=== PATIENT | male | born 2000 | race Caucasian/White ===

== ENCOUNTER 2018-06-26 18:46 | Emergency (ER) | payer SELFPAY ==
[~2018-06-26] VITALS: Ht 170.2 cm; Wt 73.6 kg
[~2018-06-26 18:46] MED LIST: NO MEDS
[2018-06-26 19:51] VITALS: BP 126/61; PULSE 114; RESP 18; Ht 170.2 cm; Wt 73.6 kg
== END 2018-06-27 02:30 | disposition left against medical advice (07) ==
LOC: FTE 18:46
DX: Z53.21 Procedure and treatment not carried out due to patient leaving prior to being seen by health care provider (principal)